=== PATIENT | female | born 1990 | race Caucasian/White ===

== ENCOUNTER 2018-02-02 15:43 | Outpatient (CLI) | payer BC ==
--- NOTE | 2018-02-02 17:12 | RAD ---
TWO VIEWS CHEST: 02/02/18 PROVIDED CLINICAL HISTORY: Pneumonia due to mycoplasma. FINDINGS: The cardiac and mediastinal silhouette is within normal limits. Lungs appear clear. No pleural fluid or pneumothorax apparent. IMPRESSION: No evidence for an acute cardiopulmonary process. POS: [facility]
== END 2018-02-02 15:44 | disposition home or self-care (01) ==
LOC: BICRAD 15:43
PROVIDERS: ATTEND Allergy & Immunology
DX: J15.7 Pneumonia due to Mycoplasma pneumoniae (principal)
CPT/HCPCS: 71046